=== PATIENT | female | born 1985 | race Caucasian/White ===

== ENCOUNTER 2017-04-20 19:37 | Emergency (ER) | payer BC, OTHER ==
[~2017-04-20] VITALS: Ht 175.3 cm; Wt 85.8 kg
[~2017-04-20 19:37] MED LIST: IBUP600 PO; NO CURRENT MEDS
[2017-04-20 19:40] VITALS: BP 135/83; PULSE 92; RESP 16; TEMP 98.4; O2SAT 99
[2017-04-20 19:52] VITALS: BP 143/80; PULSE 88; RESP 18; O2SAT 99
--- NOTE | 2017-04-20 19:56 | PD ---
HPI Chief Complaint: GI Complaint Time Seen by Provider: 19:44 Travel History International Travel<30 days: No Contact w/Intl Traveler<30days: No Traveled to known affect area: No History of Present Illness HPI This 31-year-old female is complaining of vomiting. She is about 14 weeks . She has had an ultrasound which was apparently normal. This is her fourth . She had one miscarriage. During all her pregnancies she has had persistent vomiting. She takes Zofran on an as-needed basis. She took it today but it didn't seem to help has not been any diarrhea. PFSH Past Medical History ?: LMP: 04 10 17 : 1 Para: 1 Past Surgical History Gynecologic Surgery: Yes (VAGINA RECONSTRUCTION) Social History Alcohol Use: No Tobacco Use: No Substance Use: No Allergies-Medications (Allergen,Severity, Reaction): Coded Allergies: No Known Allergies (Verified , 04/20/17) Reported Meds & Prescriptions Reported Meds & Active Scripts Active Zofran Odt (Ondansetron Odt) 4 Mg Tab 4 Mg SL Q6HR PRN Reported [No Current Meds] Physical Exam Narrative GENERAL: Well-developed female SKIN: Focused skin assessment warm/dry. HEAD: Atraumatic. Normocephalic. EYES: Pupils equal and round. No scleral icterus. No injection or drainage. ENT: No nasal bleeding or discharge. Mucous membranes dry NECK: Trachea midline. No JVD. CARDIOVASCULAR: Regular rate and rhythm. No murmur appreciated. RESPIRATORY: No accessory muscle use. Clear to auscultation. Breath sounds equal bilaterally. GASTROINTESTINAL: Abdomen soft, non-tender, nondistended. Hepatic and splenic margins not palpable. MUSCULOSKELETAL: No obvious deformities. No clubbing. No cyanosis. No edema. NEUROLOGICAL: Awake and alert. No obvious cranial nerve deficits. Motor grossly within normal limits. Normal speech. PSYCHIATRIC: Appropriate mood and affect; insight and judgment normal. Data Data Last Documented VS Vital Signs Date Time Temp Pulse Resp B/P (MAP) Pulse Ox O2 Delivery O2 Flow Rate FiO2 04/20/17 19:52 18 04/20/17 19:52 88 143/80 (101) 99 Room Air 04/20/17 19:40 98.4 Orders Orders Complete Blood Count With Diff (04/20/17 19:49) Basic Metabolic Panel (Bmp) (04/20/17 19:49) Urinalysis - C+S If Indicated (04/20/17 19:49) Sodium Chlor 0.9% 1000 Ml Inj (Ns 1000 M (04/20/17 20:00) Ondansetron Inj (Zofran Inj) (04/20/17 20:00) Sodium Chlor 0.9% 1000 Ml Inj (Ns 1000 M (04/20/17 20:00) Urine Culture (04/20/17 19:56) Labs Laboratory Tests Test 04/20/17 19:56 04/20/17 20:06 Urine Color YELLOW Urine Turbidity HAZY Urine pH 6.0 Urine Specific [place] GREATER THAN 1.035 Urine Protein 30 mg/dL Urine Glucose (UA) NEG mg/dL Urine Ketones 80 OR GREATER mg/dL Urine Occult Blood TRACE Urine Nitrite NEG Urine Bilirubin NEG Urine Leukocyte Esterase NEG Urine RBC 4-9 /hpf Urine WBC 6-8 /hpf Urine Squamous Epithelial Cells > 8 /hpf Urine Bacteria MOD /hpf Urine Mucus MANY /lpf Microscopic Urinalysis Comment CULTURE INDICATED White Blood Count 8.5 TH/MM3 Red Blood Count 4.95 MIL/MM3 Hemoglobin 14.1 GM/DL Hematocrit 41.3 % Mean Corpuscular Volume 83.3 FL Mean Corpuscular Hemoglobin 28.5 PG Mean Corpuscular Hemoglobin Concent 34.2 % Red Cell Distribution Width 12.9 % Platelet Count 178 TH/MM3 Mean Platelet Volume 8.2 FL Neutrophils (%) (Auto) 79.6 % Lymphocytes (%) (Auto) 13.1 % Monocytes (%) (Auto) 5.9 % Eosinophils (%) (Auto) 0.9 % Basophils (%) (Auto) 0.5 % Neutrophils # (Auto) 6.8 TH/MM3 Lymphocytes # (Auto) 1.1 TH/MM3 Monocytes # (Auto) 0.5 TH/MM3 Eosinophils # (Auto) 0.1 TH/MM3 Basophils # (Auto) 0.0 TH/MM3 CBC Comment DIFF FINAL Differential Comment Blood Urea Nitrogen 15 MG/DL Creatinine 0.54 MG/DL Random Glucose 78 MG/DL Calcium Level 9.2 MG/DL Sodium Level 135 MEQ/L Potassium Level 3.4 MEQ/L Chloride Level 101 MEQ/L Carbon Dioxide Level 23.0 MEQ/L Anion Gap 11 MEQ/L Estimat Glomerular Filtration Rate 133 ML/MIN [facility] Medical Decision Making Medical Screen Exam Complete: Yes Emergency Medical Condition: Yes Medical Record Reviewed: Yes Differential Diagnosis Differential includes nausea vomiting of , hyperemesis, dehydration Narrative Course Urine does show large ketones. There are no nitrates or leukocyte esterase and a few white cells. Given IV fluids and Zofran. After this she has been able to tolerate some Gatorade Diagnosis Primary Impression: Nausea and vomiting during prior to 22 weeks gestation Scripts Ondansetron Odt (Zofran Odt) 4 Mg Tab 4 MG SL Q6HR Y for Nausea/Vomiting, #40 TAB 0 Refills Prov: Ang Ann MD 04/20/17 Disposition: DISCHARGE HOME Condition: Stable Ang Ann MD Apr 20, 2017 19:56
[2017-04-20] MEDS ORDERED: ONDANSETRON HCL 4 MG/2 ML VIAL IV PUSH ONE (20:00)
[2017-04-20] MEDS ORDERED: SODIUM CHLOR 0.9% 1000 ML INJ 1,000 ML IV ONE ×2 (20:00)
[2017-04-20 20:16] LABS: AUTOMATED NEUTROPHIL # 6.8 TH/MM3 (1.8-7.7); BASOPHIL % 0.5 % (0.0-2.0); EOSINOPHIL # 0.1 TH/MM3 (0-0.4); EOSINOPHIL % 0.9 % (0.0-4.0); HEMATOCRIT 41.3 % (35.0-46.0); LYMPH % 13.1 % (9.0-44.0); LYMPHOCYTE # 1.1 TH/MM3 (1.0-4.8); MEAN CELL VOLUME 83.3 FL (80.0-100.0); MEAN CORPUSCULAR HEMOGLOBIN 28.5 PG (27.0-34.0); MEAN CORPUSCULAR HGB CONC 34.2 % (32.0-36.0); MONO % 5.9 % (0.0-8.0); NEUT % 79.6 % (16.0-70.0); PLATELET COUNT 178 TH/MM3 (150-450); RED BLOOD COUNT 4.95 MIL/MM3 (4.00-5.30); RED CELL DISTRIBUTION WIDTH 12.9 % (11.6-17.2); WHITE BLOOD COUNT 8.5 TH/MM3 (4.0-11.0)
[2017-04-20 20:22] LABS: POTASSIUM 3.4 MEQ/L (3.5-5.1)
[2017-04-20 20:23] LABS: GLUCOSE,URINE NEG (NEG); KETONE, URINE 80 OR GREATER mg/dL (NEG); NITRITE,URINE NEG (NEG)
[2017-04-20 20:25] LABS: HEMO FLAGS DIFF FINAL
[2017-04-20 20:30] LABS: BLOOD, URINE TRACE (NEG)
[2017-04-20 20:32] LABS: URINE COLOR YELLOW (YELLW/STRAW)
[2017-04-20 20:33] LABS: MUCUS URINE MANY /lpf (OCC); SQUAMOUS EPITHELIAL CELL URINE > 8 /hpf (0-5)
[2017-04-20 20:34] LABS: BACTERIA, URINE MOD /hpf; COMMENT (UR) CULTURE INDICATED; CULTURE IF INDICATED CULTURE INDICATED
[2017-04-20] MEDS ORDERED: ZOFR4TAB3 SL (20:55)
[2017-04-20 21:18] VITALS: BP 107/67
== END 2017-04-20 21:33 | disposition home or self-care (01) ==
LOC: PHED 19:37
DX: O21.9 Vomiting of pregnancy, unspecified (principal); Z3A.14 14 weeks gestation of pregnancy; B96.20 Unspecified Escherichia coli [E. coli] as the cause of diseases classified elsewhere
CPT/HCPCS: 80048; 81001; 85025; 87077; 87086; 87186; 96361; 96374; 99284; J2405; J7030

== ENCOUNTER 2017-08-19 15:47 | Inpatient (IN) | payer BC ==
[~2017-08-19] VITALS: Ht 175.3 cm; Wt 100.0 kg
[~2017-08-19 15:47] MED LIST changes: -IBUP600 PO; +ZOFR4TAB3 SL
[2017-08-19] MEDS ORDERED: ACETAMINOPHEN 325 MG TAB PO PRN (16:45)
[2017-08-19] MEDS ORDERED: DEXTROSE 5%-LACTATED RING INJ 1,000 ML IV SCH (17:00)
[2017-08-19] MEDS ORDERED: ACETAMINOPHEN 500 MG CPLT PO ONE (17:00)
--- NOTE | 2017-08-19 17:19 | PD ---
HPI Chief Complaint Fever, back pain, pelvic pressure Travel History International Travel<30 Days: No Contact w/Intl Traveler<30Days: No Known Affected Area: No History of Present Illness HPI 32-year-old 012, IUP at 31.6 care complicated by history of perineal reconstruction after first delivery. The patient presents complaining of back pain the onset at 4 AM. She first noticed it when her got up for work at that time. She was able to fall back asleep but the pain increased about 6 AM and has continued all day. She reports the pain is worse on the right in her mid back region than on the left. She also reports associated pelvic pressure. She denies any painful contractions although reports that she does have some Librado Viramontes typically at night. She reports that at 1:30 this afternoon she felt hot so she took her temperature which is 99.5 it subsequently elevated to 99.9. She reports emesis 2 but denies nausea at this time. She reports good movement. She denies any leaking of fluid or vaginal bleeding. She denies any urinary symptoms. Weeks Gestation: 31 Para: 2 : 4 : 1 History Obstetric History Obstetric History 012 2 SAB 1 Past Surgical History Narrative Surgical Perineal reconstruction 6 months after first delivery Family History Narrative Family History DM Social History Alcohol Use: No Tobacco Use: No Substance Abuse: No Allergies-Medications (Allergen,Severity, Reaction): Coded Allergies: No Known Allergies (Verified Allergy, Unknown, 08/19/17) Home Meds Active Scripts Ondansetron Odt (Zofran Odt) 4 Mg Tab, 4 MG SL Q6HR Y for Nausea/Vomiting, #40 TAB 0 Refills Prov:Ang Ann MD 04/20/17 Reported Medications [No Current Meds] (No Current Meds) No Conflict Check 02/06/14 Review of Systems Except as stated in HPI: all other systems reviewed are Neg General / Constitutional: Fever, Chills Eyes: No: Diploplia, Blurred Vision, Visual changes, Pain, Photophobia, Other HENT: Headaches, No: Vertigo, Dental Difficulties, Lightheadedness, Other Cardiovascular: No: Irregular Rhythm, Chest Pain or Discomfort, Palpitations, Tachycardia, Syncope, Varicosities, Edema, Cyanosis, Other Respiratory: No: Cough, Short of Breath, Wheezing, Other Gastrointestinal: Vomiting, No: Nausea, Diarrhea, Abdominal Pain, Hematemesis, Hematochezia, Constipation, Changes in Bowel Habits, Indigestion, Loss of Appetite, Other Genitourinary: Pelvic Pain, No: Urgency, Frequency, Dysuria, Nocturia, Hematuria, Decreased Urinary Output, Oliguria, Hesitancy, Dribbling, Incontinence, Dyspareunia, Discharge, Menorrhagia, Vaginal Bleeding, Other Musculoskeletal: No: Limited ROM, Weakness, Cramping, Edema, Pain, Other Skin: No Rash, No Itching, No Dryness, No Lumps, No Change in Pigmentation, No Change in Nails, No Alopecia, No Lesions, No Breast Lumps, No Breast Tenderness , No Breast Swelling, No Other Neurologic: No: Weakness, Dizziness, Syncope, Focal Abnormalities, Coordination Problem, Headache, Slurred Speech, Seizures, Other Psychiatric: No: Anxiety, Depression, Suicidal Ideations, Disorder of Thought, Mood Disorder, Substance Abuse, Homicidal Ideation, Other Endocrine: No: Heat Intolerance, Cold Intolerance, Polydipsia, Polyuria, Other Hematologic/Lymphatic: No Easy Bruising, No Lymph Node Enlargement, No Other Physical Exam Narrative GENERAL: Well-nourished, well-developed patient. SKIN: Warm and dry. HEAD: Normocephalic and atraumatic. EYES: No scleral icterus. No injection or drainage. ENT: No nasal drainage noted. Mucous membranes pink. Airway patent. NECK: Supple, trachea midline. No JVD. CARDIOVASCULAR: Regular rate and rhythm without murmurs, gallops, or rubs. RESPIRATORY: Breath sounds equal bilaterally. No accessory muscle use. BREASTS: Deferred ABDOMEN/GI: Abdomen soft, non-tender, bowel sounds present, no rebound, no guarding Gravid GENITOURINARY: External Genitalia: intact and normal in appearance. Grossly normal BUS. No cervical or vaginal masses appreciated. Physiologic discharge noted. Grossly normal rugate. FFN was obtained. SVE closed/thick/high/posterior FHT's: heart tones were initially in the 180s but with moderate long-term variability, accelerations, and no decelerations. heart tone baseline now in the 150s with moderate long-term variability, good accelerations, no decelerations noted after IVF and Tylenol. She does not has her reactive NST and category 1 heart rate tracing. EXTREMITIES: No cyanosis or edema. BACK: Nontender without obvious deformity. Right CVA tenderness, no left CVA tenderness. NEUROLOGICAL: Awake and alert. Motor and sensory grossly within normal limits. Five out of 5 muscle strength in all muscle groups. Normal speech. Musculoskeletal: Grossly normal muscle strength, range of motion, gait Psychiatric: Grossly normal memory/affect Data Data Orders Orders Complete Blood Count With Diff (08/19/17 16:27) Comprehensive Metabolic Panel (08/19/17 16:27) Urinalysis - C+S If Indicated (08/19/17 16:29) Acetaminophen (Tylenol) (08/19/17 16:45) Type And Screen (08/19/17 16:45) Dextrose 5%-Lactated Ring Inj (D5-Lr Inj (08/19/17 17:00) Acetaminophen (Tylenol) (08/19/17 17:00) Labs Laboratory Tests Test 08/19/17 16:11 MDM Plan Assessment/plan: 1. IUP at 31.6 2. Pyelonephritis: We'll admit for pyelonephritis in patient with findings on urinalysis, fever of 101.2 here, and right CVA tenderness. We'll start Rocephin 2 g every 24 hours. Will administer Tylenol as needed for fever and comfort, Percocet as needed for pain, and IV fluids. Urine culture pending. Discussed with patient the risks of pyelonephritis including potential complications including labor and the unlikely but possible complication of ARDS. We discussed the need for admission and continued close monitoring. All the patient and her family members questions were answered. 3. History of perineal reconstruction 4. well-being: Reassuring testing at this time with reactive NST and category 1 heart rate tracing. 5. No evidence labor: We'll monitor closely, fibronectin pending. Irlanda Wilson MD Aug 19, 2017 17:19
[2017-08-19 17:22] LABS: AUTOMATED NEUTROPHIL # 9.8 TH/MM3 (1.8-7.7); BASOPHIL % 0.2 % (0.0-2.0); EOSINOPHIL % 0.2 % (0.0-4.0); HEMATOCRIT 33.3 % (35.0-46.0); HEMOGLOBIN 11.6 GM/DL (11.6-15.3); LYMPH % 3.8 % (9.0-44.0); LYMPHOCYTE # 0.4 TH/MM3 (1.0-4.8); MEAN CELL VOLUME 86.4 FL (80.0-100.0); MEAN CORPUSCULAR HEMOGLOBIN 30.1 PG (27.0-34.0); MEAN CORPUSCULAR HGB CONC 34.8 % (32.0-36.0); MEAN PLATELET VOLUME 9.4 FL (7.0-11.0); MONO % 2.9 % (0.0-8.0); MONOCYTE # 0.3 TH/MM3 (0-0.9); NEUT % 92.9 % (16.0-70.0); PLATELET COUNT 127 TH/MM3 (150-450); RED BLOOD COUNT 3.85 MIL/MM3 (4.00-5.30); RED CELL DISTRIBUTION WIDTH 13.4 % (11.6-17.2); WHITE BLOOD COUNT 10.6 TH/MM3 (4.0-11.0)
[2017-08-19 17:24] LABS: AMORPHOUS SEDIMENT, URINE RARE; BACTERIA, URINE MANY /hpf; BILIRUBIN, URINE NEG (NEG); BLOOD, URINE SMALL (NEG); GLUCOSE,URINE NEG (NEG); KETONE, URINE NEG (NEG); MUCUS URINE FEW /lpf (OCC); NITRITE,URINE NEG (NEG); PH, URINE 6.5 (5.0-8.5); SQUAMOUS EPITHELIAL CELL URINE 1 /hpf (0-5); URINE COLOR YELLOW (YELLW/STRAW); URINE LEUKOCYTE ESTERASE LARGE (NEG)
[2017-08-19 17:30] VITALS: PULSE 120
[2017-08-19] MEDS ORDERED: ONDANSETRON ODT 4 MG TAB PO PRN (17:30)
[2017-08-19] MEDS ORDERED: ONDANSETRON HCL 4 MG/2 ML VIAL IV PUSH PRN (17:30)
[2017-08-19] MEDS ORDERED: ALUMINUM/MAGNESIUM/SIMETH 30 ML CUP PO PRN (17:30)
[2017-08-19] MEDS ORDERED: ZOLPIDEM TARTRATE 5 MG TAB PO PRN (17:30)
[2017-08-19] MEDS ORDERED: SODIUM CHLORIDE 0.9% FLUSH 10 ML FLUSH IV FLUSH PRN (17:30)
[2017-08-19 17:40] VITALS: BP 125/60; PULSE 112
[2017-08-19 17:44] LABS: ALBUMIN 2.7 GM/DL (3.4-5.0); ALT (GPT) 18 U/L (10-53); AST (GOT) 18 U/L (15-37); BICARBONATE 23.5 MEQ/L (21.0-32.0); BLOOD UREA NITROGEN 9 MG/DL (7-18); CALCIUM 7.9 MG/DL (8.5-10.1); CHLORIDE 105 MEQ/L (98-107); CREATININE 0.65 MG/DL (0.50-1.00); GLOMERULAR FILTRATION RATE 107 ML/MIN (>89); GLUCOSE,RANDOM 106 MG/DL (74-106); SODIUM (NA) 137 MEQ/L (136-145)
[2017-08-19 17:46] LABS: ALKALINE PHOSPHATASE 88 U/L (45-117); TOTAL BILIRUBIN ADULT 0.3 MG/DL (0.2-1.0); TOTAL PROTEIN 6.9 GM/DL (6.4-8.2)
[2017-08-19] MEDS ORDERED: 1/2 NS + KCL 20 MEQ INJ 1,000 ML IV SCH (18:00)
[2017-08-19] MEDS: cefTRIAXone INJ 2,000 MG in SODIUM CHLORIDE 0.9% INJ 100 ML IV SCH (18:48)
[2017-08-19] MEDS ORDERED: oxyCODONE/ACETAMINOPHEN 5 MG/325 MG TAB PO PRN ×2 (19:30)
--- NOTE | 2017-08-19 19:33 | HHI.PR ---
Subjective Remarks NST report Indications: IUP at 31.6, febrile morbidity, pelvic pressure FHT: heart tones were initially in the 180s but with moderate long-term variability, accelerations, and no decelerations. heart tone baseline now in the 150s with moderate long-term variability, good accelerations, no decelerations noted after IVF and Tylenol. She now has her reactive NST and category 1 heart rate tracing. Final diagnosis: IUP at 31.6, febrile morbidity, no evidence of labor, pyelonephritis Follow-up: Follow-up with continued monitoring Objective Vital Signs Date Time Temp Pulse Resp B/P (MAP) Pulse Ox O2 Delivery O2 Flow Rate FiO2 08/19/17 17:40 112 125/60 (81) 08/19/17 17:30 120 Result Diagram: 08/19/17 1611 08/19/17 1611 Irlanda Wilson MD Aug 19, 2017 19:33
--- NOTE | 2017-08-19 19:35 | HHI.HP ---
History & Physical [facility]&P [facility] OB ED Note (Detail) Patient Name: Mary Krishna Unit Number: [id number] Date of : 1985 Patient Status: Admitted Inpatient (obs) Attending Doctor: Irlanda Wilson MD HPI Chief Complaint Fever, back pain, pelvic pressure Travel History International Travel<30 Days: No Contact w/Intl Traveler<30Days: No Known Affected Area: No History of Present Illness HPI 32-year-old 012, IUP at 31.6 care complicated by history of perineal reconstruction after first delivery. The patient presents complaining of back pain the onset at 4 AM. She first noticed it when her got up for work at that time. She was able to fall back asleep but the pain increased about 6 AM and has continued all day. She reports the pain is worse on the right in her mid back region than on the left. She also reports associated pelvic pressure. She denies any painful contractions although reports that she does have some Librado Viramontes typically at night. She reports that at 1:30 this afternoon she felt hot so she took her temperature which is 99.5 it subsequently elevated to 99.9. She reports emesis 2 but denies nausea at this time. She reports good movement. She denies any leaking of fluid or vaginal bleeding. She denies any urinary symptoms. Weeks Gestation: 31 Para: 2 : 4 : 1 History Obstetric History Obstetric History 012 2 SAB 1 Past Surgical History Narrative Surgical Perineal reconstruction 6 months after first delivery Family History Narrative Family History DM Social History Alcohol Use: No Tobacco Use: No Substance Abuse: No Allergies-Medications (Allergen,Severity, Reaction): Coded Allergies: No Known Allergies (Verified Allergy, Unknown, 08/19/17) Home Meds Active Scripts Ondansetron Odt (Zofran Odt) 4 Mg Tab, 4 MG SL Q6HR Y for Nausea/Vomiting, #40 TAB 0 Refills Prov:Ang Ann MD 04/20/17 Reported Medications [No Current Meds] (No Current Meds) No Conflict Check 02/06/14 Review of Systems Except as stated in HPI: all other systems reviewed are Neg General / Constitutional: Fever, Chills Eyes: No: Diploplia, Blurred Vision, Visual changes, Pain, Photophobia, Other HENT: Headaches, No: Vertigo, Dental Difficulties, Lightheadedness, Other Cardiovascular: No: Irregular Rhythm, Chest Pain or Discomfort, Palpitations, Tachycardia, Syncope, Varicosities, Edema, Cyanosis, Other Respiratory: No: Cough, Short of Breath, Wheezing, Other Gastrointestinal: Vomiting, No: Nausea, Diarrhea, Abdominal Pain, Hematemesis, Hematochezia, Constipation, Changes in Bowel Habits, Indigestion, Loss of Appetite, Other Genitourinary: Pelvic Pain, No: Urgency, Frequency, Dysuria, Nocturia, Hematuria, Decreased Urinary Output, Oliguria, Hesitancy, Dribbling, Incontinence, Dyspareunia, Discharge, Menorrhagia, Vaginal Bleeding, Other Musculoskeletal: No: Limited ROM, Weakness, Cramping, Edema, Pain, Other Skin: No Rash, No Itching, No Dryness, No Lumps, No Change in Pigmentation, No Change in Nails, No Alopecia, No Lesions, No Breast Lumps, No Breast Tenderness , No Breast Swelling, No Other Neurologic: No: Weakness, Dizziness, Syncope, Focal Abnormalities, Coordination Problem, Headache, Slurred Speech, Seizures, Other Psychiatric: No: Anxiety, Depression, Suicidal Ideations, Disorder of Thought, Mood Disorder, Substance Abuse, Homicidal Ideation, Other Endocrine: No: Heat Intolerance, Cold Intolerance, Polydipsia, Polyuria, Other Hematologic/Lymphatic: No Easy Bruising, No Lymph Node Enlargement, No Other Physical Exam Narrative GENERAL: Well-nourished, well-developed patient. SKIN: Warm and dry. HEAD: Normocephalic and atraumatic. EYES: No scleral icterus. No injection or drainage. ENT: No nasal drainage noted. Mucous membranes pink. Airway patent. NECK: Supple, trachea midline. No JVD. CARDIOVASCULAR: Regular rate and rhythm without murmurs, gallops, or rubs. RESPIRATORY: Breath sounds equal bilaterally. No accessory muscle use. BREASTS: Deferred ABDOMEN/GI: Abdomen soft, non-tender, bowel sounds present, no rebound, no guarding Gravid GENITOURINARY: External Genitalia: intact and normal in appearance. Grossly normal BUS. No cervical or vaginal masses appreciated. Physiologic discharge noted. Grossly normal rugate. FFN was obtained. SVE closed/thick/high/posterior FHT's: heart tones were initially in the 180s but with moderate long-term variability, accelerations, and no decelerations. heart tone baseline now in the 150s with moderate long-term variability, good accelerations, no decelerations noted after IVF and Tylenol. She has a reactive NST and category 1 heart rate tracing. EXTREMITIES: No cyanosis or edema. BACK: Nontender without obvious deformity. Right CVA tenderness, no left CVA tenderness. NEUROLOGICAL: Awake and alert. Motor and sensory grossly within normal limits. Five out of 5 muscle strength in all muscle groups. Normal speech. Musculoskeletal: Grossly normal muscle strength, range of motion, gait Psychiatric: Grossly normal memory/affect Data Data Orders Orders Complete Blood Count With Diff (08/19/17 16:27) Comprehensive Metabolic Panel (08/19/17 16:27) Urinalysis - C+S If Indicated (08/19/17 16:29) Acetaminophen (Tylenol) (08/19/17 16:45) Type And Screen (08/19/17 16:45) Dextrose 5%-Lactated Ring Inj (D5-Lr Inj (08/19/17 17:00) Acetaminophen (Tylenol) (08/19/17 17:00) Labs Laboratory Tests Test 08/19/17 16:11 [facility] Plan Assessment/plan: 1. IUP at 31.6 2. Pyelonephritis: We'll admit for pyelonephritis in patient with findings on urinalysis, fever of 101.2 here, and right CVA tenderness. We'll start Rocephin 2 g every 24 hours. Will administer Tylenol as needed for fever and comfort, Percocet as needed for pain, and IV fluids. Urine culture pending. Discussed with patient the risks of pyelonephritis including potential complications including labor and the unlikely but possible complication of ARDS. We discussed the need for admission and continued close monitoring. All the patient and her family members questions were answered. 3. History of perineal reconstruction 4. well-being: Reassuring testing at this time with reactive NST and category 1 heart rate tracing. 5. No evidence labor: We'll monitor closely, fibronectin pending. Irlanda Wilson MD Aug 19, 2017 17:19 Irlanda Wilson MD Aug 19, 2017 19:35
[2017-08-19 19:41] VITALS: TEMP 98.3
[2017-08-19 19:42] VITALS: BP 101/58; PULSE 94; RESP 18
[2017-08-19] MEDS: SODIUM CHLORIDE 0.9% FLUSH 10 ML FLUSH IV FLUSH SCH (21:00)
[2017-08-19] MEDS: FERROUS SULFATE 325 MG (65 MG ELEMENTAL IRON) TAB PO SCH (21:37)
[2017-08-19] MEDS: ACETAMINOPHEN 325 MG TAB PO PRN (21:37)
[2017-08-19 22:53] VITALS: BP 108/64; PULSE 93
[2017-08-19 23:00] VITALS: RESP 18; TEMP 97.7
[2017-08-19] MEDS ORDERED: MORPHINE SULFATE 4 MG/ML INJ IV PUSH PRN (23:00)
[2017-08-20] VITALS (10 sets, daily range): BP systolic 106–125; BP diastolic 56–71; PULSE 80–110; RESP 18; TEMP 97.6–99.7
[2017-08-20 06:02] LABS: AUTOMATED NEUTROPHIL # 8.1 TH/MM3 (1.8-7.7); BASOPHIL % 0.3 % (0.0-2.0); EOSINOPHIL # 0.1 TH/MM3 (0-0.4); EOSINOPHIL % 0.9 % (0.0-4.0); HEMATOCRIT 30.2 % (35.0-46.0); HEMOGLOBIN 10.5 GM/DL (11.6-15.3); LYMPH % 8.6 % (9.0-44.0); LYMPHOCYTE # 0.9 TH/MM3 (1.0-4.8); MEAN CELL VOLUME 86.9 FL (80.0-100.0); MEAN CORPUSCULAR HEMOGLOBIN 30.3 PG (27.0-34.0); MEAN CORPUSCULAR HGB CONC 34.9 % (32.0-36.0); MEAN PLATELET VOLUME 9.4 FL (7.0-11.0); MONO % 9.2 % (0.0-8.0); MONOCYTE # 0.9 TH/MM3 (0-0.9); PLATELET COUNT 118 TH/MM3 (150-450); RED BLOOD COUNT 3.47 MIL/MM3 (4.00-5.30); RED CELL DISTRIBUTION WIDTH 13.3 % (11.6-17.2)
[2017-08-20] MEDS ORDERED: LACTATED RINGER'S 1000 ML INJ 1,000 ML IV SCH (08:30)
[2017-08-20] MEDS: SODIUM CHLORIDE 0.9% FLUSH 10 ML FLUSH IV FLUSH SCH (09:00)
--- NOTE | 2017-08-20 10:02 | HHI.PR ---
Subjective Remarks NST report Indications: IUP at 32, febrile morbidity, pelvic pressure FHT: heart tones were initially in the 130s but with moderate long-term variability, accelerations, and no decelerations. noted after IVF and Tylenol. She now has her reactive NST and category 1 heart rate tracing. Final diagnosis: IUP at 32, febrile morbidity, no evidence of labor, pyelonephritis Follow-up: Follow-up with monitoring as appropriate Objective Vital Signs Date Time Temp Pulse Resp B/P (MAP) Pulse Ox O2 Delivery O2 Flow Rate FiO2 08/20/17 08:00 80 106/57 (73) 08/20/17 08:00 97.8 08/20/17 05:00 97.6 18 08/20/17 04:20 84 109/56 (73) 08/19/17 23:00 97.7 18 08/19/17 23:00 18 08/19/17 22:53 93 108/64 (79) 08/19/17 19:42 18 08/19/17 19:42 94 101/58 (72) 08/19/17 19:41 98.3 08/19/17 17:40 112 125/60 (81) 08/19/17 17:30 120 Result Diagram: 08/20/17 0429 08/19/17 1611 Irlanda Wilson MD Aug 20, 2017 10:02
[2017-08-20] MEDS: MULTIVIT/MIN/PREN/FOL AC/IRON PRENATAL TAB PO SCH (10:17)
[2017-08-20] MEDS: FERROUS SULFATE 325 MG (65 MG ELEMENTAL IRON) TAB PO SCH ×2 (10:17→21:00)
[2017-08-20] MEDS: DOCUSATE SODIUM 100 MG CAP PO SCH (10:17)
--- NOTE | 2017-08-20 11:55 | PD.OB.ANTE ---
Subjective Diagnosis: (1) Pyelonephritis affecting Diagnosis: Principal (2) 32 weeks gestation of Interval History Ms. Krishna is a 32 yo at 32 weeks admitted for pyelonephritis. Patient reports that she is doing well today; she reports that she has slight pain with urination but that she overall feels much improved. No chest pain, shortness of breath, or other concerns at this time. Patient does not report back pain today. Objective Vital Signs Vital Signs Date Time Temp Pulse Resp B/P (MAP) Pulse Ox O2 Delivery O2 Flow Rate FiO2 08/20/17 08:00 80 106/57 (73) 08/20/17 08:00 97.8 08/20/17 05:00 97.6 18 08/20/17 04:20 84 109/56 (73) 08/19/17 23:00 97.7 18 08/19/17 23:00 18 08/19/17 22:53 93 108/64 (79) 08/19/17 19:42 18 08/19/17 19:42 94 101/58 (72) 08/19/17 19:41 98.3 08/19/17 17:40 112 125/60 (81) 08/19/17 17:30 120 Lab & Micro Results Test 08/19/17 16:11 08/19/17 17:18 08/20/17 04:29 White Blood Count 10.6 TH/MM3 10.0 TH/MM3 Red Blood Count 3.85 MIL/MM3 3.47 MIL/MM3 Hemoglobin 11.6 GM/DL 10.5 GM/DL Hematocrit 33.3 % 30.2 % Mean Corpuscular Volume 86.4 FL 86.9 FL Mean Corpuscular Hemoglobin 30.1 PG 30.3 PG Mean Corpuscular Hemoglobin Concent 34.8 % 34.9 % Red Cell Distribution Width 13.4 % 13.3 % Platelet Count 127 TH/MM3 118 TH/MM3 Mean Platelet Volume 9.4 FL 9.4 FL Neutrophils (%) (Auto) 92.9 % 81.0 % Lymphocytes (%) (Auto) 3.8 % 8.6 % Monocytes (%) (Auto) 2.9 % 9.2 % Eosinophils (%) (Auto) 0.2 % 0.9 % Basophils (%) (Auto) 0.2 % 0.3 % Neutrophils # (Auto) 9.8 TH/MM3 8.1 TH/MM3 Lymphocytes # (Auto) 0.4 TH/MM3 0.9 TH/MM3 Monocytes # (Auto) 0.3 TH/MM3 0.9 TH/MM3 Eosinophils # (Auto) 0.0 TH/MM3 0.1 TH/MM3 Basophils # (Auto) 0.0 TH/MM3 0.0 TH/MM3 CBC Comment DIFF FINAL DIFF FINAL Differential Comment Urine Color YELLOW Urine Turbidity CLOUDY Urine pH 6.5 Urine Specific [place] 1.018 Urine Protein 30 mg/dL Urine Glucose (UA) NEG mg/dL Urine Ketones NEG mg/dL Urine Occult Blood SMALL Urine Nitrite NEG Urine Bilirubin NEG Urine Urobilinogen LESS THAN 2.0 MG/DL Urine Leukocyte Esterase LARGE Urine RBC 3 /hpf Urine WBC /hpf Urine Squamous Epithelial Cells 1 /hpf Urine Amorphous Sediment RARE Urine Bacteria MANY /hpf Urine Mucus FEW /lpf Microscopic Urinalysis Comment CULTURE INDICATED Blood Urea Nitrogen 9 MG/DL Creatinine 0.65 MG/DL Random Glucose 106 MG/DL Total Protein 6.9 GM/DL Albumin 2.7 GM/DL Calcium Level 7.9 MG/DL Alkaline Phosphatase 88 U/L Aspartate Amino Transf (AST/SGOT) 18 U/L Alanine Aminotransferase (ALT/SGPT) 18 U/L Total Bilirubin 0.3 MG/DL Sodium Level 137 MEQ/L Potassium Level 3.7 MEQ/L Chloride Level 105 MEQ/L Carbon Dioxide Level 23.5 MEQ/L Anion Gap 9 MEQ/L Estimat Glomerular Filtration Rate 107 ML/MIN Fibronectin NEGATIVE Date/Time Source Procedure Growth Status 08/19/17 16:11 Urine Clean Catch Urine Culture Pending Received Physical Exam GENERAL: Well-nourished, well-developed patient. SKIN: No rashes EYES: No scleral icterus. No injection or drainage. CARDIOVASCULAR: Regular rate and rhythm without murmurs. Normal perfusion RESPIRATORY: CTAB; normal rate ABDOMEN/GI: Abdomen soft, non-tender, bowel sounds present, no rebound, no guarding Gravid EXTREMITIES: No LE swelling or calf pain BACK: Nontender without obvious deformity. Right CVA tenderness, no left CVA tenderness. NEUROLOGICAL: Awake and alert. Motor and sensory grossly within normal limits. Five out of 5 muscle strength in all muscle groups. Normal speech. Musculoskeletal: Grossly normal muscle strength, range of motion, gait Psychiatric: Grossly normal memory/affect GENITOURINARY: Deferred [08/[address] Wilson- closed, thick, high] FHT: Reactive rhythm; baseline 130's this morning GENITOURINARY: External Genitalia: intact and normal in appearance Cervix: [-] Dilatation: [-] Effacement: [-] Station: [-] Presentation: [-] Membranes: [-] Uterine Contractions: [-] FHT's: Category: [-] Baseline: [-] Reactive: [-] Variability: [-] Decels: [-] EXTREMITIES: No cyanosis or edema, non-tender, without signs of DVT. Assessment and Plan Problem List: (1) Pyelonephritis affecting ICD Codes: O23.00 - Infections of kidney in , unspecified trimester (2) 32 weeks gestation of ICD Codes: Z3A.32 - 32 weeks gestation of Assessment and Plan Ms. Krishna is a 32 yo at 32 weeks admitted for pyelonephritis. 32 week IUP Impression: Cat 1 rhythm. No current suggestion of labor on CTG. FFN negative -Continue monitoring/NST BID Pyelonephritis Impression: R CVA tenderness, T 101.2, UA with many bacteria and large leuk esterase. Back pain improved 08/20 -Continue IV Rocephin 2gm daily -Follow urine culture -Continue Morphine for pain control Allan Polk MD, R3 Aug 20, 2017 11:55
[2017-08-20] MEDS: ACETAMINOPHEN 325 MG TAB PO PRN (16:59)
[2017-08-20] MEDS: cefTRIAXone INJ 2,000 MG in SODIUM CHLORIDE 0.9% INJ 100 ML IV SCH (18:06)
[2017-08-21] VITALS (8 sets, daily range): BP systolic 104–132; BP diastolic 54–71; PULSE 87–115; RESP 16; TEMP 98.2–100.1
[2017-08-21] MEDS: ACETAMINOPHEN 325 MG TAB PO PRN ×3 (01:38→18:44)
[2017-08-21 05:36] LABS: AUTOMATED NEUTROPHIL # 8.1 TH/MM3 (1.8-7.7); BASOPHIL % 0.4 % (0.0-2.0); EOSINOPHIL % 0.4 % (0.0-4.0); HEMATOCRIT 30.8 % (35.0-46.0); HEMOGLOBIN 10.5 GM/DL (11.6-15.3); LYMPH % 7.3 % (9.0-44.0); LYMPHOCYTE # 0.7 TH/MM3 (1.0-4.8); MEAN CORPUSCULAR HGB CONC 34.2 % (32.0-36.0); MEAN PLATELET VOLUME 8.7 FL (7.0-11.0); MONO % 11.3 % (0.0-8.0); MONOCYTE # 1.1 TH/MM3 (0-0.9); NEUT % 80.6 % (16.0-70.0); PLATELET COUNT 116 TH/MM3 (150-450); RED BLOOD COUNT 3.62 MIL/MM3 (4.00-5.30); RED CELL DISTRIBUTION WIDTH 13.5 % (11.6-17.2)
[2017-08-21 05:58] LABS: CALCIUM 8.6 MG/DL (8.5-10.1); CREATININE 0.49 MG/DL (0.50-1.00)
[2017-08-21] MEDS: MULTIVIT/MIN/PREN/FOL AC/IRON PRENATAL TAB PO SCH (09:03)
[2017-08-21] MEDS: SODIUM CHLORIDE 0.9% FLUSH 10 ML FLUSH IV FLUSH SCH ×2 (09:03→21:00)
[2017-08-21] MEDS: DOCUSATE SODIUM 100 MG CAP PO SCH (09:04)
[2017-08-21] MEDS: FERROUS SULFATE 325 MG (65 MG ELEMENTAL IRON) TAB PO SCH ×2 (09:04→21:53)
[2017-08-21] MEDS: SODIUM CHLOR 0.9% 1000 ML INJ 1,000 ML IV SCH ×2 (09:45→17:45)
--- NOTE | 2017-08-21 10:11 | PD.OB.ANTE ---
Subjective Diagnosis: (1) Pyelonephritis affecting Diagnosis: Principal (2) 32 weeks gestation of Diagnosis: Principal Interval History Patient seen and examined this morning. Patient reports improvement. Mild headache this morning. Some nausea overnight, controlled with Zofran. Did have fever overnight. No vomiting. No dysuria. No back pain. Denies any chest pain, shortness of breath, leg pain. Antepartum ROS: Denies: New complaints, Loss of fluid, Vaginal bleeding, movement normal, Contractions, Other Objective Vital Signs Vital Signs Date Time Temp Pulse Resp B/P (MAP) Pulse Ox O2 Delivery O2 Flow Rate FiO2 08/21/17 09:04 108 121/71 (88) 08/21/17 09:02 98.2 08/21/17 01:40 115 132/64 (86) 08/21/17 01:40 100.1 08/20/17 21:49 98.8 08/20/17 19:53 18 08/20/17 19:45 110 119/67 (84) 08/20/17 19:44 99.7 08/20/17 16:00 99.1 08/20/17 16:00 105 125/63 (83) 08/20/17 13:00 98.8 08/20/17 12:49 95 117/71 (86) Lab & Micro Results Test 08/21/17 05:23 White Blood Count 10.0 TH/MM3 Red Blood Count 3.62 MIL/MM3 Hemoglobin 10.5 GM/DL Hematocrit 30.8 % Mean Corpuscular Volume 85.0 FL Mean Corpuscular Hemoglobin 29.0 PG Mean Corpuscular Hemoglobin Concent 34.2 % Red Cell Distribution Width 13.5 % Platelet Count 116 TH/MM3 Mean Platelet Volume 8.7 FL Neutrophils (%) (Auto) 80.6 % Lymphocytes (%) (Auto) 7.3 % Monocytes (%) (Auto) 11.3 % Eosinophils (%) (Auto) 0.4 % Basophils (%) (Auto) 0.4 % Neutrophils # (Auto) 8.1 TH/MM3 Lymphocytes # (Auto) 0.7 TH/MM3 Monocytes # (Auto) 1.1 TH/MM3 Eosinophils # (Auto) 0.0 TH/MM3 Basophils # (Auto) 0.0 TH/MM3 CBC Comment DIFF FINAL Differential Comment Blood Urea Nitrogen 7 MG/DL Creatinine 0.49 MG/DL Random Glucose 79 MG/DL Calcium Level 8.6 MG/DL Sodium Level 138 MEQ/L Potassium Level 3.8 MEQ/L Chloride Level 106 MEQ/L Carbon Dioxide Level 23.0 MEQ/L Anion Gap 9 MEQ/L Estimat Glomerular Filtration Rate 148 ML/MIN Date/Time Source Procedure Growth Status 08/19/17 16:11 Urine Clean Catch Urine Culture - Preliminary Gram Negative Mauri Resulted Physical Exam GENERAL: Well-nourished, well-developed patient. CARDIOVASCULAR: Regular rate and rhythm without murmurs, gallops, or rubs. RESPIRATORY: Breath sounds equal bilaterally. No accessory muscle use. ABDOMEN/GI: Abdomen soft, non-tender. Gravid to 32 weeks BACK: No CVA tenderness EXTREMITIES: No cyanosis or edema, non-tender, without signs of DVT. Assessment and Plan Problem List: (1) Pyelonephritis affecting ICD Codes: O23.00 - Infections of kidney in , unspecified trimester Qualifiers: Qualified Codes: O23.03 - Infections of kidney in , third trimester (2) 32 weeks gestation of ICD Codes: Z3A.32 - 32 weeks gestation of Assessment and Plan Ms. Krishna is a 32 yo at 32 weeks admitted for pyelonephritis. 32 week IUP Impression: Cat 1 rhythm. No current suggestion of labor on CTG. FFN negative -Continue monitoring/NST BID Pyelonephritis Impression: R CVA tenderness,improved symptoms. Febrile overnight. -Change Rocephin to 1g BID from 2g daily -Follow urine culture -Continue Morphine for pain control -Maintenance fluids at 125mls/hr Mau Villalobos MD Aug 21, 2017 10:11
[2017-08-21] MEDS: cefTRIAXone INJ 1,000 MG in SODIUM CHLORIDE 0.9% INJ 100 ML IV SCH ×2 (10:15→21:53)
[2017-08-22 01:45] VITALS: TEMP 97.7
[2017-08-22] MEDS: SODIUM CHLOR 0.9% 1000 ML INJ 1,000 ML IV SCH (03:00)
[2017-08-22 05:52] VITALS: TEMP 98.1
[2017-08-22] MEDS ORDERED: PREN29TA PO (07:50)
[2017-08-22] MEDS: SODIUM CHLORIDE 0.9% FLUSH 10 ML FLUSH IV FLUSH SCH (08:00)
--- NOTE | 2017-08-22 08:10 | PD.OB.ANTE ---
Subjective Diagnosis: (1) Pyelonephritis affecting Diagnosis: Principal (2) 32 weeks gestation of Diagnosis: Principal Interval History Patient seen and examined this morning. States she feels the best she has all hospitalization. No issues overnight. Temperature of 100.1 yesterday afternoon. Otherwise, denies any fever/chills overnight. No nausea or vomiting. No new back pain. No dysuria or hematuria. Denies any chest pain, shortness of breath, leg pain. No diarrhea. Antepartum ROS: Denies: New complaints, Loss of fluid, Vaginal bleeding, movement normal, Contractions, Other (Mau Villalobos MD) Interval History Patient with pyelonephritis. Culture/sensitivity shows E coli Will send home on PO Macrobid 100mg po BID for another 10 days (Layo Stephens MD) Objective Vital Signs Vital Signs Date Time Temp Pulse Resp B/P (MAP) Pulse Ox O2 Delivery O2 Flow Rate FiO2 08/22/17 05:52 98.1 08/22/17 01:45 97.7 08/21/17 22:00 98.5 16 08/21/17 21:53 87 104/54 (71) 08/21/17 19:45 18 08/21/17 18:43 115 108/63 (78) 08/21/17 18:42 98.3 08/21/17 14:44 100.1 08/21/17 09:04 108 121/71 (88) 08/21/17 09:02 98.2 Lab & Micro Results Date/Time Source Procedure Growth Status 08/19/17 16:11 Urine Clean Catch Urine Culture - Final Escherichia Coli Complete Physical Exam GENERAL: Well-nourished, well-developed patient. CARDIOVASCULAR: Regular rate and rhythm without murmurs, gallops, or rubs. RESPIRATORY: Breath sounds equal bilaterally. No accessory muscle use. ABDOMEN/GI: Abdomen soft, non-tender. Gravid to 32 weeks BACK: No CVA tenderness EXTREMITIES: No cyanosis or edema, non-tender, without signs of DVT. (Mau Villalobos MD) Assessment and Plan Problem List: (1) Pyelonephritis affecting ICD Codes: O23.00 - Infections of kidney in , unspecified trimester Qualifiers: Qualified Codes: O23.03 - Infections of kidney in , third trimester (2) 32 weeks gestation of ICD Codes: Z3A.32 - 32 weeks gestation of Assessment and Plan Ms. Krishna is a 32 yo at 32 weeks admitted for pyelonephritis. 32 week IUP Impression: Cat 1 rhythm. No current suggestion of labor on CTG. FFN negative -Continue monitoring/NST BID Pyelonephritis Impression: R CVA tenderness,improved symptoms. Febrile overnight. -Rocephin -Urine culture: E. Coli, pansensitive -D/c with Macrobid BID for 7 days; will need f/u in 1 week with test of cure and prophylaxis -Maintenance fluids at 125mls/hr (Mau Villalobos MD) Mau Villalobos MD Aug 22, 2017 08:10 Layo Stephens MD Aug 22, 2017 09:22
--- NOTE | 2017-08-22 08:11 | HHI.DCPOC ---
Discharge Care Plan Diagnosis: (1) 32 weeks gestation of (2) Pyelonephritis affecting Report Symptoms to Your Doctor -Temperature above 100.5 degrees -Redness, of incision or excessive or foul smelling drainage -Unusual pain or calf pain -Increased vaginal bleeding -Painful or difficulty urinating -Feelings of extreme sadness or anxiety after 2 weeks Goals to Promote Your Health * To prevent worsening of your condition and complications * To maintain your health at the optimal level Directions to Meet Your Goals Take your medications as prescribed Follow your dietary instruction Follow activity as directed Ensure plenty of rest for recovery Drink fluids for hydration Keep your appointments as scheduled Take your immunizations and boosters as scheduled If your symptoms worsen call your PCP, if no PCP go to Urgent Care Center or Emergency Room Smoking is Dangerous to Your Health. Avoid second hand smoke Call the 24-hour crisis hotline for domestic abuse at Mau Villalobos MD Aug 22, 2017 08:11
[2017-08-22] MEDS ORDERED: NITR100C4 PO ×2 (08:14→09:07)
[2017-08-22] MEDS ORDERED: NITR1CAP37 PO (08:14)
[2017-08-22 08:35] VITALS: TEMP 98.8
[2017-08-22 08:36] VITALS: BP 110/67; PULSE 86
[2017-08-22] MEDS: MULTIVIT/MIN/PREN/FOL AC/IRON PRENATAL TAB PO SCH (08:37)
[2017-08-22] MEDS: DOCUSATE SODIUM 100 MG CAP PO SCH (08:37)
[2017-08-22] MEDS: FERROUS SULFATE 325 MG (65 MG ELEMENTAL IRON) TAB PO SCH (08:37)
[2017-08-22 08:38] VITALS: RESP 18
== END 2017-08-22 09:39 | disposition home or self-care (01) | DRG 781 ==
LOC: HOBED 15:47 → H2EA 17:28 → OBSVTOIN 17:30
PROVIDERS: ADMIT Obstetrics & Gynecology; ATTEND Obstetrics & Gynecology
DX: O23.03 Infections of kidney in pregnancy, third trimester (principal); O47.03 False labor before 37 completed weeks of gestation, third trimester; N12 Tubulo-interstitial nephritis, not specified as acute or chronic; B96.20 Unspecified Escherichia coli [E. coli] as the cause of diseases classified elsewhere; Z3A.31 31 weeks gestation of pregnancy
CPT/HCPCS: 80048; 80053; 81001; 82731; 85025; 86850; 86900; 86901; 87077; 87086; 87186; J0696; J7030; J7120; J7121